=== PATIENT | female | born 1985 | race American Indian/Alaskan Native ===

== ENCOUNTER 2017-02-13 12:52 | Day surgery (SDC) | payer MEDICAID, OTHER ==
[2017-02-13] MEDS ORDERED: NACL 0.9% 1000 ML 1,000 ML IV SCH (14:00)
[2017-02-13] MEDS ORDERED: XYLOCAINE MPF 2% ONE (14:00)
--- NOTE | 2017-02-13 14:20 | Anesthesia Day of Surgery ---
Anesthesia Day of Surgery - Day of Surgery Patient Examined: Yes Patient H&P Reviewed: Yes Patient is NPO: Yes
--- NOTE | 2017-02-13 14:20 | Anesthesia Consultation ---
Anesthesia Consult and Med Hx Date of service: 02/13/17 - Airway Anesthetic Teeth Evaluation: Good ROM Head & Neck: Adequate Mental/Hyoid Distance: Adequate Mallampati Class: Class I Intubation Access Assessment: Good - Pulmonary Exam CTA: Yes - Cardiac Exam Cardiac Exam: RRR - Pre-Operative Health Status ASA Pre-Surgery Classification: ASA1 Proposed Anesthetic Plan: MAC - Pulmonary Hx Smoking: No - Cardiovascular System Hx Hypertension: No - Central Nervous System Hx Neuromuscular Disorder: No Hx Psychiatric Problems: No - Gastrointestinal Hx Gastroesophageal Reflux Disease: No - Endocrine Hx Renal Disease: No Hx Insulin Dependent Diabetes: No - Hematic Hx Anemia: No Hx Sickle Cell Disease: No - Other Systems Hx Alcohol Use: No Hx Substance Use: No Hx Cancer: No Hx Obesity: No
[2017-02-13] MEDS ORDERED: WATER FOR IRRIG STERILE IR ONE (14:35)
[2017-02-13] MEDS ORDERED: DIPRIVAN 10 MG/ML IV ONE ×3 (14:40→14:41)
--- NOTE | 2017-02-13 14:50 | History and Physical Report ---
History of Present Illness Date of examination: 02/13/17 Date of admission: 02/13/2017 Chief complaint: Progressive constipation, change in bowel habits. History of present illness: Patient is a 31-year-old female who presents with 4 green symptoms. She lately has had progressive constipation with altered bowel habits. Patient now presents for evaluation with a sigmoidoscopy. Medications and Allergies Allergies Allergy/AdvReac Type Severity Reaction Status Date / Time SEASONAL Allergy Mild Itching Uncoded 02/13/17 14:35 Active Meds: Active Medications Sodium Chloride (Nacl 0.9% 1000 Ml) 1,000 mls @ 50 mls/hr IV DIRECT AVI Last Admin: 02/13/17 14:22 Dose: 50 mls/hr Review of Systems All systems: negative Exam - Constitutional Vitals: Temp Pulse Resp BP Pulse Ox 98.2 F 67 17 116/68 100 02/13/17 14:15 02/13/17 14:15 02/13/17 14:15 02/13/17 14:15 02/13/17 14:15 General appearance: Present: no acute distress, well-nourished - EENT Eyes: Present: PERRL ENT: hearing intact, clear oral mucosa - Neck Neck: Present: supple, normal ROM - Respiratory Respiratory effort: normal Respiratory: bilateral: CTA - Cardiovascular Heart Sounds: Present: S1 & S2. Absent: rub, click - Extremities Extremities: pulses symmetrical, No edema Peripheral Pulses: within normal limits - Abdominal General gastrointestinal: Present: soft, non-tender, non-distended, normal bowel sounds Female genitourinary: Present: normal - Integumentary Integumentary: Present: clear, warm, dry - Musculoskeletal Musculoskeletal: gait normal, strength equal bilaterally - Psychiatric Psychiatric: appropriate mood/affect, intact judgment & insight - Neurologic Neurologic: CNII-XII intact, moves all extremities Assessment and Plan Progressive constipation Altered bowel habits Plan: A sigmoidoscopy is being done to assess patient. This most likely be followed with a barium enema as clinically indicated. Additional recommendations will be made depending on the findings.
--- NOTE | 2017-02-13 15:09 | Operative Report ---
Operative Report Operative Report: Date of procedure: 02/13/2017 Procedure: Flexible sigmoidoscopy with hot biopsy polypectomy Attending physician: Alessandro Alvarado MD Devulcanizer Tender: Alessandro Alvarado MD Indication: Patient is a 31-year-old female who presents with a history of progressive constipation with altered bowel habits Consent: Informed consent was obtained after advising the patient and family regarding nature of this procedure, its indications, potential benefits as well as possible complications including but not limited to bleeding perforation and adverse reaction to medication, infection as well as other cardiopulmonary complications. An informed written and verbal consent was then obtained after due opportunity was provided for questions and answers. Monitoring: Patient was monitored continuously with pulse oximetry and electrocardiographic recordings as well as blood pressure recordings. Vital signs remained stable throughout this procedure with no untoward events. Preoperative assessment: Patient was assessed immediately prior to this procedure for capacity to tolerate monitored anesthesia care and moderate sedation as well as general anesthesia. Patient's ASA classification is 1, Mallampati class is 2, Hyomental distance is 3. Instrument: Fujinon video colonoscope Medications: Propofol given intravenously in divided doses. For details please refer to anesthesia records. Description of procedure: Patient was placed in the left lateral decubitus position after achieving sedation, a digital rectal examination was performed following which the colonoscope was introduced into the anal verge and advanced to the descending colon. The colonoscope was subsequently withdrawn with careful inspection of all mucosal surfaces. Patient tolerated this procedure well and was subsequently taken to the recovery room. The following findings were noted. Findings: Patient had a diminutive sigmoid colon polyp which measured approximate 5 mm. It was removed by hot biopsy polypectomy. The rest of the examination was normal. On the retroflex view at the anal verge patient had internal hemorrhoids. Impression: Diminutive sigmoid colon polyp status post hot biopsy polypectomy. Internal hemorrhoids. Plan: High-fiber diet. Follow pathology report and direct additional treatment based on pathology report. As needed stool softeners.
--- NOTE | 2017-02-13 15:47 | Post Anesthesia Evaluation ---
- Post Anesthesia Evaluation Patient Participated: Yes Airway Patent: Yes Stable Respiratory Function: Yes Nausea/Vomiting: No Temp > 96.8F: Yes Pain Manageable: Yes Adequeate Hydration: Yes Anesthesia Complications: No
[2017-02-13 15:50] VITALS: BP 124/72
== END 2017-02-13 12:53 | disposition home or self-care (01) ==
LOC: GIO 12:52
PROVIDERS: ATTEND Internal Medicine Gastroenterology
DX: K63.5 Polyp of colon (principal); K64.8 Other hemorrhoids
CPT/HCPCS: 45333; 81025; 88305; J2704; J7030